=== PATIENT | male | born 1980 | race Caucasian/White ===

== ENCOUNTER 2020-03-31 18:09 | Emergency (ER) | payer SELFPAY ==
[~2020-03-31] VITALS: Ht 180.3 cm; Wt 79.4 kg
[~2020-03-31 18:09] MED LIST: ALBUTEROL SULF8.5 GM INH; IBUPROFEN600 MG PO; NORCO 5-325 TA1 EACH PO; VALIUM5 MG PO
== END 2020-03-31 21:53 | disposition home or self-care (01) ==
LOC: ED 18:09
DX: Z04.3 Encounter for examination and observation following other accident (principal); W19.XXXA Unspecified fall, initial encounter
CPT/HCPCS: 70450; 71260; 72125; 74177; 80053; 85025; 99284-25; G0480; J7121; Q9967

== ENCOUNTER 2021-10-09 05:08 | Emergency (ER) | payer BC ==
[~2021-10-09] VITALS: Ht 180.3 cm; Wt 83.9 kg
== END 2021-10-09 06:20 | disposition home or self-care (01) ==
LOC: ED 05:08
DX: M24.412 Recurrent dislocation, left shoulder (principal); J45.909 Unspecified asthma, uncomplicated
CPT/HCPCS: 23650; 73030; 99283-25; J2060; J2270; J2405